=== PATIENT | female | born 2000 | race Caucasian/White ===

== ENCOUNTER 2019-04-04 13:54 | Inpatient (IN) | payer MEDICAID ==
[2019-04-04 15:48] LABS: APPEARANCE,URINE SLIGHTLY-CLOUDY; BILIRUBIN,URINE NEGATIVE (NEGATIVE); COLOR,URINE YELLOW; GLUCOSE, URINE 50 mg/dL (NEGATIVE); KETONES,URINE NEGATIVE (NEGATIVE); LEUKOCYTE ESTERASE,URINE MODERATE (NEGATIVE); NITRITE,URINE NEGATIVE (NEGATIVE); PROTEIN,URINE NEGATIVE (NEGATIVE); URINE SPECIFIC GRAVITY 1.008; UROBILINOGEN,URINE NEGATIVE mg/dL (<2.0)
[2019-04-04 15:51] LABS: URINE AMPHETAMINES SCREEN NEGATIVE; URINE BARBITURATES SCREEN NEGATIVE; URINE BENZODIAZEPINES SCREEN NEGATIVE; URINE COCAINE SCREEN NEGATIVE; URINE MARIJUANA (THC) SCREEN NEGATIVE; URINE METHADONE SCREEN NEGATIVE; URINE PHENCYCLIDINE SCREEN NEGATIVE
[2019-04-04 15:56] LABS: ABSOLUTE EOSINOPHILS # (AUTO) 0.1 10^3/uL (0.0-0.6); ABSOLUTE LYMPHOCYTES (AUTO) 1.4 10^3/uL (0.5-4.7); ABSOLUTE MONOCYTES (AUTO) 0.8 10^3/uL (0.1-1.4); ABSOLUTE NEUT (AUTO) 8.1 10^3/uL (1.7-8.2); BASOPHILS % (AUTO) 0.3 % (0-2); EOSINOPHILS % (AUTO) 0.6 % (0-6); HEMATOCRIT 33.3 % (36.0-47.0); HEMOGLOBIN 11.5 g/dL (12.0-15.5); LYMPHOCYTES % (AUTO) 13.3 % (13-45); MEAN CORPUSCULAR HEMOGLOBIN 29.9 pg (27.0-33.4); MEAN CORPUSCULAR HGB CONC 34.7 g/dL (32.0-36.0); MEAN CORPUSCULAR VOLUME 86 fl (80-97); MONOCYTES % (AUTO) 7.9 % (3-13); PLATELET COUNT 141 10^3/uL (150-450); RED BLOOD COUNT 3.85 10^6/uL (3.72-5.28); RED CELL DISTRIBUTION WIDTH 13.2 % (11.5-14.0); SEGMENTED NEUTROPHILS % (AUTO) 77.9 % (42-78); TOTAL CELLS COUNTED % (AUTO) 100 %; WHITE BLOOD COUNT 10.4 10^3/uL (4.0-10.5)
[2019-04-04] MEDS ORDERED: RINGERS SOLUTION,LACTATED 1,000 ML IV ONE (19:55)
[2019-04-04] MEDS ORDERED: RINGERS SOLUTION,LACTATED 1,000 ML IV PRN (19:55)
--- NOTE | 2019-04-04 20:07 | Admission Physical ---
Datetime Report Generated by CPN: 04/04/2019 20:06 CURRENT ADMISSION Chief Complaint: Uterine Contractions Indication for Induction: Not Applicable; Maternal Diabetes Admit Impression : Term, Intrauterine ; Active Labor; Intact Membranes Admit Plan: Admit to Unit; Initiate Labor Protocol ALLERGIES Medication Allergies: Unknown Medication Allergies: No Known Allergies (04/04/2019) Latex: Unknown OBSTETRICAL HISTORY EDC: 04/06/2019 00:00 : 1 Gestational Diabetes: Yes Rh Sensitization: No Incompetent Cervix: No TRINY: No Infertility: No ART Treatment: No Uterine Anomaly: No IUGR: No Hx Previous C/S: No Macrosomia: Unknown Hx Loss/Stillborn: No PIH: No Hx : No Placenta Previa/Abruption: No Depression/PP Depression: Yes PTL/PROM: No Post Hemorrhage: No Current Procedures: Ultrasound; NST SEE RECORDS Alcohol: No Marijuana : No Cocaine: No Other Illicit Drugs: No Cigarettes: Never Smoker. [id number] MEDICAL HISTORY Diabetes: Yes Diabetes Type: Gestational Diabetes Blood Transfusion: No Pulmonary Disease (Asthma, TB): No Breast Disease: No Hypertension: No Operating Room Nurse Surgery: No Heart Disease: No Hosp/Surgery: No Autoimmune Disorder: No Anesthetic Complications: No Kidney Disease: No Abnormal Pap Smear: No Neuro/Epilepsy: No Psychiatric Disorders: Yes Other Medical Diseases: No Hepatitis/Liver Disease: No Significant Family History: No Varicosities/Phlebitis: No Trauma/Violence : No Thyroid Dysfunction: No Medical History Comments: anxiety and depression- on celexa, GDM- glyburide, INFECTIOUS HISTORY Gonorrhea: No Genital Herpes: No Chlamydia: No Tuberculosis: No Syphilis: No HIV/AIDS Exposure: No Rash or Viral Illness: No HPV: No PHYSICAL EXAM General: Normal HEENT: Normal Neurologic: Normal Thyroid: Deferred Heart: Normal Lungs: Normal Breast: Deferred Back: Normal Abdomen: Normal Genitourinary Exam: Normal Extremities: Normal DTRs: Normal Pelvic Type: Adequate Vital Signs: Reviewed VAGINAL EXAM Dilatation: 5 Effacement: 90 Station: 0 Contraction Comments: q 2-3 MEMBRANES Membranes: Intact Amniotic Fluid Color: Clear FETUS A EGA: 39.5 Monitoring: External US FHR- Baseline: 125 Variability: Moderate 6-25bpm Accelerations: 15X15 Decelerations: None Presentation: Vertex Admit Comment: 19yo at 39+5ega presents for regular uterine ctx. Cvx changed from 1.5cm to 4-5/90/0. Baby boy fetus with bilateral renal pelviectasis. GBS negative. A2GDM with poor compliance with glyburide. Varicella NI - needs vaccination pp. H/o Anxiety and depression - [employer] planners pp. Admit to labor and delivery. epidural upon patient request. Anticipate . PLANS FOR LABOR AND DELIVERY Pain Management: Epidural Feeding Preference: Breast Benefit of Breast Feed Discussed: Yes Circumcision: Yes INFORMED CONSENT Informed Consent Obtained: Vaginal Delivery; Risks, Benefits and Alternatives Discussed Signature: with User ID: [email or web address]
[2019-04-04] MEDS ORDERED: FENTANYL/BUPIVACAINE/NS/PF 300 MCG/150 ML RTUINJ EPI ONE (20:37)
[2019-04-04] MEDS ORDERED: EPHEDRINE SULFATE INJ 50 MG/1 ML AMPULE ONE (20:37)
[2019-04-04] MEDS ORDERED: BUPIVACAINE HCL 0.5 % INJ/PF 30 ML SDV ONE (20:38)
[2019-04-04] MEDS ORDERED: LIDOCAINE 1% INJ-PF (10 MG/ML) 30 ML SDV ONE (21:31)
[2019-04-04] MEDS ORDERED: MISOPROSTOL 0.2 MG TABLET ONE (21:31)
[2019-04-04] MEDS ORDERED: OXYTOCIN 10 UNIT/ML VIAL ONE (21:31)
[2019-04-04] MEDS ORDERED: OXYTOCIN/NORMAL SALINE 20 UNIT/1,000 ML RTUINJ ONE (21:31)
[2019-04-05] MEDS ORDERED: CEFAZOLIN 2 GM/D5W RTU 2 GM/50 ML RTUPB IV ONE ×2 (07:17→07:22)
[2019-04-05] MEDS ORDERED: ONDANSETRON HCL INJ/PF 4 MG/2 ML SDV ONE (07:38)
[2019-04-05] MEDS ORDERED: ONDANSETRON HCL INJ/PF 4 MG/2 ML SDV IV ONE (07:42)
[2019-04-05] MEDS ORDERED: BENZOCAINE/MENTHOL AEROSOL SPRAY 56 ML TOP PRN (08:21)
[2019-04-05] MEDS ORDERED: PROMETHAZINE HCL 25 MG SUPP.RECT PR PRN (08:21)
[2019-04-05] MEDS ORDERED: DIBUCAINE 1% OINTMENT 56 GM TP PRN (08:21)
[2019-04-05] MEDS ORDERED: ACETAMINOPHEN 325 MG TABLET PO PRN (08:21)
[2019-04-05] MEDS ORDERED: PSEUDOEPHEDRINE HCL 30 MG TABLET PO PRN (08:21)
[2019-04-05] MEDS ORDERED: DIPHENHYDRAMINE HCL 25 MG CAPSULE PO PRN (08:21)
[2019-04-05] MEDS ORDERED: MEASLES,MUMPS&RUBELLA VACC/PF 0.5 ML VIAL SUBCUT PRN (08:21)
[2019-04-05] MEDS ORDERED: PROMETHAZINE HCL 25 MG TABLET PO PRN (08:21)
[2019-04-05] MEDS ORDERED: MAGNESIUM HYDROXIDE SUSP 30 ML UDCUP PO PRN (08:21)
[2019-04-05] MEDS ORDERED: GLYCERIN/WITCH HAZEL LEAF 1 EACH MED..WIPE TP PRN (08:21)
[2019-04-05] MEDS ORDERED: DIPH/PERTUSS(ACELL)/TETANUS VAC/PF 0.5 ML SYR (>=10YO) IM PRN (08:21)
[2019-04-05] MEDS ORDERED: MISOPROSTOL 0.2 MG TABLET PR PRN (08:21)
[2019-04-05] MEDS ORDERED: ZOLPIDEM TARTRATE 5 MG TABLET PO PRN (08:21)
[2019-04-05] MEDS ORDERED: PROMETHAZINE HCL INJ 25 MG/1 ML VIAL IV PRN (08:21)
[2019-04-05] MEDS ORDERED: OXYTOCIN/NORMAL SALINE 20 UNIT/1,000 ML RTUINJ IV PRN (08:21)
[2019-04-05] MEDS ORDERED: ACETAMINOPHEN WITH CODEINE #3 TABLET PO PRN (08:21)
[2019-04-05] MEDS ORDERED: NA PHOS,M-B/NA PHOS,DI-BA (ADULT) 133 ML ENEMA PR PRN (08:21)
[2019-04-05 09:20] LABS: ALANINE AMINOTRANSFERASE 20 U/L (9-52); ALKALINE PHOSPHATASE 149 U/L (38-126); ANION GAP 12 (5-19); ASPARTATE AMINO TRANSFERASE 25 U/L (14-36); BILIRUBIN,DIRECT 0.3 mg/dL (0.0-0.4); BILIRUBIN,TOTAL 0.6 mg/dL (0.2-1.3); BLOOD UREA NITROGEN 5 mg/dL (7-20); CALCIUM 8.3 mg/dL (8.4-10.2); CARBON DIOXIDE 22 mmol/L (22-30); CHLORIDE 106 mmol/L (98-107); GLUCOSE 137 mg/dL (75-110); POTASSIUM 3.1 mmol/L (3.6-5.0); SODIUM 139.8 mmol/L (137-145); TOTAL PROTEIN 5.6 g/dL (6.3-8.2); URIC ACID 5.3 mg/dL (2.5-6.2)
--- NOTE | 2019-04-05 09:22 | Warning Signs in Babies ---
VOD Warning Signs Datetime Report Generated by [facility]: 04/05/2019 09:22 VOD#[id number] -Warning Signs in Babies: Viewed with Parent(s)/Family (04/04/2019 13:58:NACHO Orozco)
[2019-04-05 09:24] LABS: HEMATOCRIT 32.9 % (36.0-47.0); MEAN CORPUSCULAR HEMOGLOBIN 29.3 pg (27.0-33.4); MEAN CORPUSCULAR HGB CONC 33.5 g/dL (32.0-36.0); MEAN CORPUSCULAR VOLUME 87 fl (80-97); PLATELET COUNT 170 10^3/uL (150-450); RED BLOOD COUNT 3.76 10^6/uL (3.72-5.28); RED CELL DISTRIBUTION WIDTH 13.3 % (11.5-14.0); WHITE BLOOD COUNT 19.2 10^3/uL (4.0-10.5)
[2019-04-05 09:47] LABS: ABSOLUTE LYMPHOCYTES# (MANUAL) 0.8 10^3/uL (0.5-4.7); ABSOLUTE MONOCYTES # (MANUAL) 1.3 10^3/uL (0.1-1.4); ABSOLUTE NEUTROPHILS# (MANUAL) 17.1 10^3/uL (1.7-8.2); BASOPHILS % (MANUAL) 0 % (0-2); EOSINOPHILS % (MANUAL) 0 % (0-6); LYMPHOCYTES % (MANUAL) 4 % (13-45); MONOCYTES % (MANUAL) 7 % (3-13); SEGMENTED NEUTROPHILS % (MAN) 89 % (42-78); TOTAL CELLS COUNTED 100
[2019-04-05 09:50] LABS: OVALOCYTES SLIGHT; POIKILOCYTOSIS SLIGHT; POLYCHROMASIA SLIGHT; TEAR DROP CELLS SLIGHT
[2019-04-05 09:51] LABS: PLATELET COMMENT ADEQUATE; PLATELET LARGE PRESENT
[2019-04-05] MEDS ORDERED: (PENDING PHARMACY ID) (Citalopram Hydrobromide [Celexa 10 Mg Tablet] 10 MG) PO SCH (10:00)
[2019-04-05] MEDS ORDERED: CITALOPRAM HYDROBROMIDE 20 MG TABLET PO SCH ×2 (10:00→22:00)
[2019-04-05] MEDS ORDERED: PRENATAL VITAMIN W DHA CAPSULE PO ONE (10:19)
[2019-04-05] MEDS ORDERED: SENNOSIDES/DOCUSATE 8.6-50 MG 1 EACH TABLET ONE (10:19)
[2019-04-05] MEDS ORDERED: FAMOTIDINE 20 MG TABLET ONE ×2 (10:19→21:01)
[2019-04-05] MEDS ORDERED: FERROUS SULFATE 325 MG TABLET PO ONE ×2 (10:19→17:45)
[2019-04-05] MEDS ORDERED: DOCUSATE SODIUM 100 MG CAPSULE ONE ×2 (10:19→17:45)
[2019-04-05] MEDS ORDERED: IBUPROFEN 800 MG TABLET ONE ×3 (10:19→21:02)
[2019-04-05] MEDS: DOCUSATE SODIUM 100 MG CAPSULE PO SCH ×2 (10:20→17:48)
[2019-04-05] MEDS: PRENATAL VITAMIN W DHA CAPSULE PO SCH (10:20)
[2019-04-05] MEDS: FAMOTIDINE 20 MG TABLET PO SCH ×2 (10:20→21:05)
[2019-04-05] MEDS: FERROUS SULFATE 325 MG TABLET PO SCH ×2 (10:20→17:48)
[2019-04-05] MEDS: SENNOSIDES/DOCUSATE 8.6-50 MG 1 EACH TABLET PO SCH (10:20)
[2019-04-05] MEDS ORDERED: BENZOCAINE/MENTHOL AEROSOL SPRAY 56 ML ONE (10:20)
[2019-04-05] MEDS ORDERED: ACETAMINOPHEN WITH CODEINE #3 TABLET ONE ×2 (11:42→16:36)
[2019-04-05] MEDS: ACETAMINOPHEN WITH CODEINE #3 TABLET PO PRN ×2 (11:48→16:39)
--- NOTE | 2019-04-05 12:30 | Warning Signs in Babies ---
VOD Warning Signs Datetime Report Generated by [facility]: 04/05/2019 12:30 VOD#[id number] -Warning Signs in Babies: Viewed with Parent(s)/Family (04/05/2019 09:18:NACHO Orozco)
[2019-04-05] MEDS: IBUPROFEN 800 MG TABLET PO SCH ×2 (16:41→21:06)
[2019-04-05] MEDS: CITALOPRAM HYDROBROMIDE 20 MG TABLET PO SCH (23:06)
[2019-04-06] MEDS: IBUPROFEN 800 MG TABLET PO SCH ×3 (05:24→21:50)
[2019-04-06 08:37] LABS: HEMATOCRIT 25.9 % (36.0-47.0); MEAN CORPUSCULAR HEMOGLOBIN 29.7 pg (27.0-33.4); MEAN CORPUSCULAR HGB CONC 34.5 g/dL (32.0-36.0); MEAN CORPUSCULAR VOLUME 86 fl (80-97); RED BLOOD COUNT 3.01 10^6/uL (3.72-5.28); RED CELL DISTRIBUTION WIDTH 13.3 % (11.5-14.0); WHITE BLOOD COUNT 14.5 10^3/uL (4.0-10.5)
[2019-04-06 09:08] LABS: HEMOGLOBIN 8.9 g/dL (12.0-15.5)
[2019-04-06 09:09] LABS: PLATELET COUNT 142 10^3/uL (150-450)
[2019-04-06] MEDS: PRENATAL VITAMIN W DHA CAPSULE PO SCH (10:39)
[2019-04-06] MEDS: SENNOSIDES/DOCUSATE 8.6-50 MG 1 EACH TABLET PO SCH (10:39)
[2019-04-06] MEDS: DOCUSATE SODIUM 100 MG CAPSULE PO SCH ×2 (10:39→18:14)
[2019-04-06] MEDS: FERROUS SULFATE 325 MG TABLET PO SCH ×2 (10:39→18:14)
[2019-04-06] MEDS: FAMOTIDINE 20 MG TABLET PO SCH ×2 (10:48→21:53)
--- NOTE | 2019-04-06 12:34 | PDOC PROGRESS REPORT ---
Subjective-OB Progress Note for:: 04/06/19 Subjective: reports pain controlled with current meds, bleeding slowing. denies needs. Physical Exam (OB) Vital Signs: Temp Pulse Resp BP Pulse Ox 98.0 F 74 14 122/70 98 04/06/19 08:01 04/06/19 08:01 04/06/19 08:01 04/06/19 08:01 04/06/19 08:01 Intake & Output 04/05/19 04/06/19 04/07/19 06:59 06:59 06:59 Intake Total 1000 500 Balance 1000 500 Weight 74.8 kg - Abdomen Description: Soft Hernia Present: No Fundal Description: Firm, Midline Fundal Height: u/u - u/2 - Abdominal Distension: No distension Tenderness: Nontender - Extremities Lower extremities: Naya's sign - neg Calf: Normal, Nontender Objective-Diagnostic Laboratory: 04/06/19 07:43 04/05/19 08:39 04/06/19 07:43 WBC 14.5 H RBC 3.01 L Hgb 8.9 L D Hct 25.9 L MCV 86 MCH 29.7 MCHC 34.5 RDW 13.3 Plt Count 142 L Assessment and Plan(PN) - Assessment and Plan (1) Fourth degree laceration of perineum, delivered, current hospitalization Is this a current diagnosis for this admission?: Yes (2) Vaginal delivery Is this a current diagnosis for this admission?: Yes - Time Spent with Patient Time with patient: Less than 15 minutes Medications reviewed and adjusted accordingly: Yes - Disposition Anticipated Discharge: Home Within: within 24 hours
[2019-04-06] MEDS: CITALOPRAM HYDROBROMIDE 20 MG TABLET PO SCH (21:52)
[2019-04-07] MEDS: IBUPROFEN 800 MG TABLET PO SCH (05:04)
[2019-04-07 08:35] VITALS: BP 120/74
--- NOTE | 2019-04-07 10:20 | PDOC DISCHARGE SUMMARY ---
Final Diagnosis Discharge Date: 04/07/19 - Final Diagnosis (1) Fourth degree laceration of perineum, delivered, current hospitalization Is this a current diagnosis for this admission?: Yes (2) Vaginal delivery Is this a current diagnosis for this admission?: Yes Discharge Data - Discharge Medication Prescriptions: Acetaminophen with Codeine [Tylenol #3 Tablet] 1 each PO Q4HP PRN #30 tablet PRN Reason: Ibuprofen [Motrin 800 mg Tablet] 800 mg PO Q8HP PRN #90 tablet PRN Reason: Home Medications: Citalopram Hydrobromide [Celexa 10 mg Tablet] 10 mg PO DAILY 04/04/19 Vits96/Iron Fum/Folic [ Tablet] 1 each PO DAILY 04/04/19 Acetaminophen with Codeine [Tylenol #3 Tablet] 1 each PO Q4HP PRN #30 tablet 04/07/19 Benzocaine/Menthol [Dermoplast Aerosol [place] 56 ml] 1 applic TOP PRN PRN can 04/07/19 Docusate Sodium [Colace 100 mg Capsule] 100 mg PO BID capsule 04/07/19 Ferrous Sulfate [Feosol 325 mg Tablet] 325 mg PO BID tablet 04/07/19 Ibuprofen [Motrin 800 mg Tablet] 800 mg PO Q8HP PRN #90 tablet 04/07/19 Procedures: NST Intrapartum Procedure(s): Spontaneous Vaginal Delivery Complication(s): Laceration-Perineal Laceration-Degree: 4th - Diagnosis Test Laboratory: Temp Pulse Resp BP Pulse Ox 98.7 F 80 16 120/74 97 04/07/19 07:46 04/07/19 07:46 04/07/19 07:46 04/07/19 07:29 04/07/19 07:46 04/04/19 04/04/19 04/05/19 14:02 15:32 08:39 RBC 3.85 3.76 Hgb 11.5 L 11.0 L Hct 33.3 L 32.9 L Urine Opiates Screen NEGATIVE 04/06/19 07:43 RBC 3.01 L Hgb 8.9 L D Hct 25.9 L Urine Opiates Screen - Discharge information/Instructions Discharge Activity: Balance Activity w/Rest, Pelvic Rest, Slowly Increase Activity Discharge Diet: Regular Disposition: HOME, SELF-CARE Follow up with: [facility] in: 10, Days
[2019-04-07] MEDS: DOCUSATE SODIUM 100 MG CAPSULE PO SCH (11:09)
[2019-04-07] MEDS: FERROUS SULFATE 325 MG TABLET PO SCH (11:10)
[2019-04-07] MEDS: PRENATAL VITAMIN W DHA CAPSULE PO SCH (11:10)
[2019-04-07] MEDS: SENNOSIDES/DOCUSATE 8.6-50 MG 1 EACH TABLET PO SCH (11:10)
[2019-04-07] MEDS: FAMOTIDINE 20 MG TABLET PO SCH (11:13)
--- NOTE | 2019-04-11 09:36 | Delivery Summary ---
Del Sum A-C Datetime Report Generated by CPN: 04/11/2019 09:35 DELIVERY PERSONNEL DELIVERY PERSONNEL: [id number] Delivery Doctor:: Fabiola Patton MD Anesthesiologist:: Martell Ly MD Labor and Delivery Nurse:: Chiara Agosto RNbottom cementer Nurse:: NACHO Orozco [employer] Routeman/RESIDENTIAL SALES REPRESENTATIVE: Marion Ortiz BAG MAKING MACHINE TENDER [employer] Routeman/RESIDENTIAL SALES REPRESENTATIVE: Tiki Esposito, ST MATERNAL INFORMATION Delivery Anesthesia: Epidural Meds After Delivery Comment: Pitocin 20 units in 1000 ml nss open for bolus Maternal Complications: Hemorrhage Provider Comments: VMI delivered in YURI presentation. No nuchal cord. Shoulders and body delivered without difficulty. Cord doubly clamped and cut. to maternal abdomen for NRP. Placenta delivered intact spontaneously. FF at U. 4th degree perineal laceration repaired in layered fashion with good hemostasis. Mother and baby stable upon provider leaving the room LABOR SUMMARY EDC: 04/06/2019 00:00 No. Babies in Womb: 1 Attempted: No Labor Anesthesia: Epidural LABOR INFORMATION Reason for Induction: Not Applicable Onset of Labor: 04/04/2019 20:40 Complete Dilatation: 04/05/2019 05:35 Oxytocin: N/A Group B Beta Strep: Negative Antibiotics # of Doses: 0 Steroids Given: None Reason Steroids Not Administered: Not Applicable MEMBRANES Membranes Rupture Method: Artificial Rupture of Membranes: 04/05/2019 01:55 Length of Rupture (hr): 5.17 Amniotic Fluid Color: Bloody Amniotic Fluid Amount: Small Amniotic Fluid Odor: Normal STAGES OF LABOR Stage 1 hr: 8 Stage 1 min: 55 Stage 2 hr: 1 Stage 2 min: 30 Stage 3 hr: 0 Stage 3 min: 3 Total Time in Labor hr: 10 Total Time in Labor min: 28 VAGINAL DELIVERY Episiotomy: None Laceration #1: Perineal Laceration Extension #1: Fourth Degree Laceration Repair: Yes Laceration Repair Note: 4th degree laceration repaired in layered fashion with good hemostasis. Sponge Count Correct: Yes Sharps Count Correct: Yes CSECTION DELIVERY Primary Indication: N/A Secondary Indication: N/A CSection Incidence: N/A Labor: N/A Elective: N/A CSection Incision: N/A BABY A INFORMATION Delivery Date/Time: 04/05/2019 07:05 Method of Delivery: Vaginal Method of Delivery: Vaginal Born in Route : No : N/A Forceps: N/A Vacuum Extraction: N/A Shoulder Dystocia : No PRESENTATION/POSITION BABY A Presentation: Cephalic Presentation: Cephalic Cephalic Presentation: Vertex Vertex Position: Right Occipital Anterior Breech Presentation: N/A PLACENTA INFORMATION BABY A Placenta Delivery Time : 04/05/2019 07:08 Placenta Method of Delivery: Spontaneous Placenta Status: Delivered SCORES BABY A Heart Rate 1 min: >100 bpm Resp Effort 1 min: Good Cry Reflex Irritability 1 min: Cough or Sneeze or Pulls Away Muscle Tone 1 min: Active Motion Color 1 min: Blue/Pale Resuscitation Effort 1 min: Tactile Stimulation SCORE 1 MIN: 8 Heart Rate 5 min: >100 bpm Resp Effort 5 min: Good Cry Reflex Irritability 5 min: Cough or Sneeze or Pulls Away Muscle Tone 5 min: Active Motion Color 5 min: Body [place], Extremities Blue SCORE 5 MIN: 9 INFANT INFORMATION BABY A Gestational Age at Delivery: 39.6 Gestational Status: Full Term- 39- 40.6 Weeks Outcome : Liveborn Condition : Stable Infant Sex: Male Sex: Male Sex: Male IDENTIFICATION BABY A Infant Verification Date/Time: 04/05/2019 07:14 ID Band Number: [id number] Mother's Name Verified: Yes RN Verifying Infant: M. Surendra RN, S. Camp RN WEIGHT/LENGTH BABY A Infant Birthweight (gm): 3975 Weight (lb): 8 Infant Weight (oz): 12 Length (in): 21.00 Length (cm): 53.34 CORD INFORMATION BABY A No. Cord Vessels: 3 Nuchal Cord : N/A Cord Blood Taken: Yes-For Storage (Mom's Blood type +) Infant Suction: Mouth; Nose ASSESSMENT BABY A Complications: None Physical Findings at Delivery: Caput Succedaneum Infant Respirations: Appears Normal Skin to Skin: Yes Skin to Skin: Yes Skin to Skin Time (min): 60 Community Integration Specialist/ALS Called : No Infant Care By: S. Camp RNC Transferred To: Remains with Mother BABY B INFORMATION : N/A SIGNATURES Signature: with User ID: [email or web address]
== END 2019-04-07 13:13 | disposition home or self-care (01) | DRG 768 ==
LOC: LC 13:54 → LR 19:57 → 2S 04-05 21:23
PROVIDERS: ADMIT Student in an Organized Health Care Education/Training Program; ATTEND Student in an Organized Health Care Education/Training Program
PROC: 10E0XZZ Delivery of Products of Conception, External Approach (ICD-10-PCS; principal; 2019-04-05)
PROC: 0DQP0ZZ Repair Rectum, Open Approach (ICD-10-PCS; 2019-04-05)
DX: O24.425 Gestational diabetes mellitus in childbirth, controlled by oral hypoglycemic drugs (principal); Z37.0 Single live birth; O70.3 Fourth degree perineal laceration during delivery; O67.9 Intrapartum hemorrhage, unspecified; O99.344 Other mental disorders complicating childbirth; F41.9 Anxiety disorder, unspecified; F32.9 Major depressive disorder, single episode, unspecified; Z79.899 Other long term (current) drug therapy; Z3A.39 39 weeks gestation of pregnancy
CPT/HCPCS: 36415; 80053; 80307; 81005; 83615; 84550; 85025; 85027; 86592; 86850; 86900; 86901; 94760; J0690; J2405; J2590; J3010; J3490